=== PATIENT | female | born 1950 | race Caucasian/White ===

== ENCOUNTER → 2017-05-14 | Outpatient (CLI) | payer OTHER ==
[~2017-05-14] MED LIST: ACETAMINOPHEN325 M1 PO; AMARYL4 MG PO; AMOXICILLIN 50500 M1 PO; ASPIRIN81 M2 PO; CALCIUM 600 +1 EAC1 PO; CELEBREX 200 M200 M1 PO; FISH OIL 1,0001 EAC5 PO; FLAXSEED OIL1000 MG PO; FLEXERIL PO; GLUCOPHAGE1000 MG PO; GLUCOPHAGE500 MG PO; IBUPROFEN 600600 M1 PO; LANTUS SQ; LEXAPRO 10 MG T10 M2 PO; LOVASTAT20 PO; MULTIVITAMINS PO; NEURONTIN 300300 M1 PO; NORCO 5-325 TA1 EACH PO; OMEPRAZOLE40 MG PO; PIOGLITAZONE15 MG; PROVENTIL HFA6.7 G1 INH; VICTOZA0.6 MG/0.1 SUBQ; VITAMIN E400 UNI6 PO
== END ==
LOC: RAD 00:30
DX: Z12.31 Encounter for screening mammogram for malignant neoplasm of breast (principal)